=== PATIENT | male | born 1960 ===

== ENCOUNTER → 2017-06-07 | Outpatient (CLI) | payer BC ==
[2017-06-07 12:26] LABS: HEMATOCRIT 46.5 % (42-52); MEAN CELL VOLUME 90.5 fL (80-100); MEAN CORPUSCULAR HEMOGLOBIN 32.1 pg (25-34); MEAN CORPUSCULAR HGB CONC 35.5 g/dl (32-36); MEAN PLATELET VOLUME 11.3 fL (7.4-10.4); PLATELET COUNT 205 K/uL (130-400); RED BLOOD COUNT 5.14 M/uL (4.7-6.1); WHITE BLOOD COUNT 5.43 K/uL (4.8-10.8)
[2017-06-07 12:56] LABS: BLOOD UREA NITROGEN 14 mg/dl (7-18); BUN/CREATININE RATIO 10.6 (10-20); CALCIUM 9.1 mg/dl (8.5-10.1); CARBON DIOXIDE 27 mmol/L (21-32); CHLORIDE 107 mmol/L (98-107); CHOLESTEROL 164 mg/dl (0-200); GLUCOSE 111 mg/dl (70-99); SODIUM 141 mmol/L (136-145); TRIGLYCERIDES 149 mg/dl (0-150); VERY LOW DENSITY LIPOPROT CALC 30 mg/dl
[2017-06-07 13:00] LABS: CHOLESTEROL/HDL RATIO 4.1; FERRITIN 305.5 ng/ml (8.0-388.0); HDL CHOLESTEROL 40 mg/dl; LDL CHOLESTEROL CALCULATED 94 mg/dl
== END | disposition home or self-care (01) ==
LOC: C.LABPBG 07:04
PROVIDERS: ATTEND Family Medicine
DX: I10 Essential (primary) hypertension (principal); G25.81 Restless legs syndrome; Z13.220 Encounter for screening for lipoid disorders

== ENCOUNTER 2023-10-09 19:28 | Observation (INO) ==
--- NOTE | 2023-10-09 19:58 | Emergency Department Note ---
History of Present Illness General Chief complaint: Abdominal Pain Stated complaint: ABD PAIN Time Seen by Provider: 10/09/23 19:39 Source: patient, family ( on the telephone), RN notes reviewed and old records reviewed (08/02/23-primary care office visit for) Mode of arrival: ambulatory Limitations: no limitations History of Present Illness Maximum Pain Intensity: 5 This patient is 63-year-old male who comes in with abdominal pain. It has been going on since said he woke up with a lot of acid reflux and since then he has had abdominal pain diffusely it is mostly in the lower abdomen but does radiate upward he said 1 sides not worse than the other. No trauma or injury he does have some nausea he vomited once today. Has not been eating much because it is worse with eating. No back pain. no trauma or injury. no fever. no dysuria or hematuria. no pain in the legs no numbness or weakness in legs. No chest pain or shortness of breath or cough. He has had no abdominal surgeries .he has a known ventral wall hernia that is unchanged. Home Medications Medication Instructions Recorded Confirmed Type diclofenac sodium 75 mg 75 mg PO BID #180 tabs 08/02/23 10/09/23 Rx tablet,delayed release gabapentin 300 mg capsule 300 mg PO BID #180 caps 08/02/23 10/09/23 Rx losartan 25 mg tablet 25 mg PO BID #180 tabs 08/02/23 10/09/23 Rx trazodone 150 mg tablet 150 mg PO HS #90 tabs 08/02/23 10/09/23 Rx ropinirole 1 mg tablet 1 mg PO QDD 10/09/23 10/09/23 History tamsulosin 0.4 mg capsule 0.4 mg PO QDD 10/09/23 10/09/23 History Allergies Allergy/AdvReac Type Severity Reaction Status Date / Time No Known Allergies Allergy Verified 10/09/23 19:56 Past Med/Surg History Medical History Benign prostatic hyperplasia History of COVID-19 (~08/25/21) @ [facility]--prior to scheduled procedure--no symptoms Lung nodule, multiple Insomnia Restless leg syndrome Hypertension Surgical History History of colonoscopy History of tooth extraction Family History Father , ALS, age 75 ALS (amyotrophic lateral sclerosis) Mother Hypertension Family history of diabetes mellitus Other No family history of adverse response to anesthesia Denies family history of Ovarian cancer Prostate cancer Myocardial infarction Breast cancer Colorectal cancer Social History Smoking Status: Never smoker Tobacco Type: Smokeless Tobacco (Dip or Chew) Second Hand Exposure: No; Do You Dip or Chew Tobacco: Yes; Tobacco Cessation Education Requested by Patient: No Hx Alcohol Use: Yes Alcohol type: beer and hard liquor Alcohol Intake Frequency: Monthly or Less Hx Substance Use: No Preferred Language: Somali Communication Ability: Effective Visual Impairment: No Limitations Hearing Ability: Normal Director Cpg Required: No Beliefs That Will Affect Care: None marital status: Current Living Situation: Spouse Current Living Situation Comment: House current occupational status: employed Other Information That Helps Us Care for You: No Feels Safe at Home: Yes Safety Concerns: Feels Safe At This Time Childhood Exposure to Second-Hand Smoke: Yes Diet: regular Diet Comment: regular caffeine: Yes (coffee) during the past year weight has: decreased > 10 lbs Dental Care, Regularly: Yes Physical Activity Frequency: Daily Physical Activity Frequency Comment: walking Seatbelt Use: always Sunscreen Use: No Assistive Devices: None Review of Systems A total of 10 systems reviewed and were otherwise negative Physical Exam Vital Signs Vital Signs - 24 hr 10/09/23 19:31 10/09/23 20:11 10/09/23 20:14 Temperature 36.5 C Temperature Source Temporal Artery Scan Pulse Rate 95 H 79 Pulse Rate from SpO2 Sensor Respiratory Rate 18 13 Respiratory Effort / Characteristics Non-Labored Spontaneous Respiratory Depth Normal Respiratory Pattern Regular Blood Pressure 138/82 Blood Pressure Mean 100 Blood Pressure Position Sitting Pulse Oximetry 95 98 Oxygen Delivery Method Room Air Room Air Sepsis Recent Fever Within 48 Hours No Sepsis New/Unexplained Change in Mental Status N/A Sepsis Action Taken by Nursing No Action Required 10/09/23 20:20 10/09/23 20:30 10/09/23 20:30 Temperature Temperature Source Pulse Rate 75 75 Pulse Rate from SpO2 Sensor Respiratory Rate 14 17 Respiratory Effort / Characteristics Respiratory Depth Respiratory Pattern Blood Pressure 138/80 Blood Pressure Mean 101 Blood Pressure Position Pulse Oximetry Oxygen Delivery Method Sepsis Recent Fever Within 48 Hours Sepsis New/Unexplained Change in Mental Status Sepsis Action Taken by Nursing 10/09/23 20:40 10/09/23 20:55 10/09/23 21:00 Temperature Temperature Source Pulse Rate 72 76 74 Pulse Rate from SpO2 Sensor 74 73 Respiratory Rate 23 12 20 Respiratory Effort / Characteristics Respiratory Depth Respiratory Pattern Blood Pressure Blood Pressure Mean Blood Pressure Position Pulse Oximetry 94 95 Oxygen Delivery Method Sepsis Recent Fever Within 48 Hours Sepsis New/Unexplained Change in Mental Status Sepsis Action Taken by Nursing 10/09/23 21:10 10/09/23 21:20 10/09/23 21:33 Temperature Temperature Source Pulse Rate 74 71 78 Pulse Rate from SpO2 Sensor 74 71 Respiratory Rate 16 16 Respiratory Effort / Characteristics Respiratory Depth Respiratory Pattern Blood Pressure Blood Pressure Mean Blood Pressure Position Pulse Oximetry 95 94 Oxygen Delivery Method Sepsis Recent Fever Within 48 Hours Sepsis New/Unexplained Change in Mental Status Sepsis Action Taken by Nursing 10/09/23 21:34 10/09/23 21:34 10/09/23 21:40 Temperature Temperature Source Pulse Rate 73 71 Pulse Rate from SpO2 Sensor Respiratory Rate 18 Respiratory Effort / Characteristics Respiratory Depth Respiratory Pattern Blood Pressure 165/80 H Blood Pressure Mean 98 Blood Pressure Position Pulse Oximetry Oxygen Delivery Method Sepsis Recent Fever Within 48 Hours Sepsis New/Unexplained Change in Mental Status Sepsis Action Taken by Nursing 10/09/23 21:50 10/09/23 22:00 10/09/23 22:00 Temperature Temperature Source Pulse Rate 70 71 Pulse Rate from SpO2 Sensor Respiratory Rate 19 Respiratory Effort / Characteristics Respiratory Depth Respiratory Pattern Blood Pressure 146/84 H Blood Pressure Mean 103 Blood Pressure Position Pulse Oximetry Oxygen Delivery Method Sepsis Recent Fever Within 48 Hours Sepsis New/Unexplained Change in Mental Status Sepsis Action Taken by Nursing 10/09/23 22:10 Temperature Temperature Source Pulse Rate 69 Pulse Rate from SpO2 Sensor Respiratory Rate 15 Respiratory Effort / Characteristics Respiratory Depth Respiratory Pattern Blood Pressure Blood Pressure Mean Blood Pressure Position Pulse Oximetry Oxygen Delivery Method Sepsis Recent Fever Within 48 Hours Sepsis New/Unexplained Change in Mental Status Sepsis Action Taken by Nursing General: Well developed well nourished middle-age male who in no acute distress, breathing comfortably on room air. Normal speech HEENT: Normal cephalic atraumatic. Pupils are equal round and reactive to light. Extraocular movements are intact. Oropharynx is pink with moist mucous membranes. No swelling of the mouth lips or tongue. Neck: Supple with a midline trachea. No meningeal signs or stiffness, no JVD or bruits. No Stridor. Chest: Clear to auscultation bilaterally. No wheezes or rhonchi. No increased work of breathing. Heart: Regular rate and rhythm without murmurs or gallops. Abdomen: Soft mildly diffusely tender mostly in the lower to mid abdomen bilaterally. He does have a ventral defect/hernia centrally that is not red or warm is mildly tender but no more so than anywhere else in the abdomen. He may be mildly distended but without rebound guarding or rigidity. : Normal male genitalia no testicular redness warmth or swelling. No masses or hernia seen Extremities: No cyanosis clubbing or edema. No calf tenderness or assymetry Spine/Back. Non tender to palpation. No CVA tenderness Skin: Good turgor without rashes. Neurologic exam: Cranial nerves two through 12 are intact. Motor and sensation are intact and symmetrical throughout. Course Administered Medications Acetaminophen (Ofirmev) 1,000 mg in 100 mls @ 400 mls/hr IV Q8H PRN PRN Reason: Pain or Fever Stop: 10/12/23 22:13 Last Infusion: 10/10/23 00:55 Dose: Infused Documented By: Admin: 10/10/23 00:28 Dose: 400 mls/hr Documented By: ALEXANDER Lactated Ringer's (Lr) 1,000 mls @ 125 mls/hr IV .Q8H GARRISON Stop: 11/08/23 22:29 Last Admin: 10/09/23 23:20 Dose: 125 mls/hr Documented By: ALEXANDER Ketorolac Tromethamine (Ketorolac Tromethamine 15 Mg/Ml Vial) 15 mg IV Q6H PRN PRN Reason: Pain Stop: 10/14/23 22:13 Last Admin: 10/09/23 23:20 Dose: 15 mg Documented By: ALEXANDER Discontinued Medications Sodium Chloride (Nss) 1,000 mls @ 999 mls/hr IV .Q1H1M ONE Stop: 10/09/23 20:52 Last Infusion: 10/09/23 21:20 Dose: Infused Documented By: Admin: 10/09/23 20:02 Dose: 999 mls/hr Documented By: ANNE Pantoprazole Sodium 40 mg/ (Syringe) 10 mls @ 5 mls/min IV NOW STA Stop: 10/09/23 22:26 Last Admin: 10/09/23 22:42 Dose: 5 mls/min Documented By: ANNE Ioversol (Optiray 320 100ml) 93 ml IV ONCE ONE Stop: 10/09/23 20:49 Last Admin: 10/09/23 20:48 Dose: 93 ml Documented By: IRAIDA Ketorolac Tromethamine (Ketorolac Tromethamine 15 Mg/Ml Vial) 10 mg IV NOW ONE Stop: 10/09/23 20:13 Last Admin: 10/09/23 20:18 Dose: 10 mg Documented By: ANNE Ondansetron HCl (Ondansetron Inj 2 Mg/Ml 2 Ml Vial) 4 mg IV NOW STA Stop: 10/09/23 19:53 Last Admin: 10/09/23 20:02 Dose: 4 mg Documented By: ANNE Medical Decision Making Differential Diagnosis Intra-abdominal process, hernia, colitis, pancreatitis, gallbladder disease, diverticulitis, appendicitis, aneurysm, urinary tract process, bowel obstruction Medical Records Attestation: I reviewed the patient's medical records. Home Medications Current Medication List: was personally reviewed by me Laboratory Data Attestation: I reviewed the patient's lab results. 10/09/23 20:03 10/09/23 20:03 Lab Results 10/09/23 10/09/23 10/09/23 Range/Units 20:03 20:09 21:30 WBC 6.77 (4.8-10.8) K/ul RBC 5.41 (4.70-6.10) M/uL Hgb 17.4 (14.0-18.0) g/dl Hct 47.2 (42.0-52.0) % MCV 87.2 (80.0-100.0) fL MCH 32.2 (25.0-34.0) pg MCHC 36.9 H (32.0-36.0) g/dL RDW Std Deviation 41.0 (36.4-46.3) fL RDW Coeff of Zuhair 12.9 (11.5-14.5) % Plt Count 250 (130-400) K/uL MPV 10.4 (9.4-12.4) fL Immature Gran % (Auto) 0.1 % Neut % (Auto) 70.2 % Lymph % (Auto) 17.3 % Coffee % (Auto) 11.4 % Eos % (Auto) 0.9 % Baso % (Auto) 0.1 % Neut # (Auto) 4.75 (1.40-6.50) K/uL Lymph # (Auto) 1.17 L (1.20-3.40) K/uL Coffee # (Auto) 0.77 H (0.11-0.59) K/uL Eos # (Auto) 0.06 (0.00-0.50) K/uL Baso # (Auto) 0.01 (0.00-0.20) K/uL Immature Gran # (Auto) 0.01 (0.01-0.20) K/uL Sodium 138 (136-145) mmol/L Potassium 3.8 (3.5-5.1) mmol/L Chloride 105 (98-107) mmol/L Carbon Dioxide 25 (21-32) mmol/L Anion Gap 8 (3-11) BUN 15 (6-23) mg/dl Creatinine 1.15 (0.6-1.4) mg/dl Est Cr Clr Drug Dosing 75.9 ml/min Est GFR ( Amer) 77.0 ml/min Est GFR (Non-Af Amer) 66.4 ml/min BUN/Creatinine Ratio 13.0 (10-20) Glucose 121 H (70-99(Fasting)) mg/dl Lactate 1.0 (0.4-2.0) mmol/L Calcium 9.1 (8.6-10.3) mg/dl Total Bilirubin 0.7 (0.2-1.0) mg/dl AST 15 (13-39) U/L ALT 20 (7-52) U/L Alkaline Phosphatase 51 (34-104) U/L Troponin I High Sens 2.7 (0-20) pg/ml Total Protein 7.1 (6.0-8.3) gm/dl Albumin 4.4 (3.4-5.0) gm/dl Globulin 2.7 (2.5-4.0) gm/dl Albumin/Globulin Ratio 1.6 (0.9-2) Lipase 8 L (11-82) U/L Urine Color Yellow Urine Appearance Clear (Clear) Urine pH 5.5 (4.5-7.5) Ur Specific [place] > 1.045 H (1.000-1.030) Urine Protein Negative (Negative) Urine Glucose (UA) Negative (Negative) Urine Ketones Negative (Negative) Urine Blood Negative (Negative) Urine Nitrite Negative (Negative) Urine Bilirubin Negative (Negative) Urine Urobilinogen Negative (Negative) Ur Leukocyte Esterase Negative (Negative) Ur Culture Indicated? Cancelled Imaging Data Attestation: I personally reviewed and interpreted this imaging study as follows: My Impression: CAT scan of the abdomen and pelvis-there are multiple dilated loops of small bowel concerning for small bowel obstruction Radiologist's Impression: Abdomen/Pelvis CT 10/09/23 19:53 Exam(s): CT ABDOMEN + PELVIS With Contrast IV Amt: 93ml EXAM: CT Abdomen and Pelvis With Intravenous Contrast CLINICAL HISTORY: Reason for exam: abd pain. TECHNIQUE: Axial computed tomography images of the abdomen and pelvis with intravenous contrast. CTDI is 56.2 mGy and DLP is 2468.57 mGy-cm. Automated exposure control was utilized for the study. A dose lowering technique was utilized adhering to the principles of ALARA. CONTRAST: Patient received 93ml of IV contrast COMPARISON: CT abdomen/pelvis on 07/02/2018 FINDINGS: Lung bases: Stable probably benign nodules in the right lower lobe, measuring up to 1.3 mm. No consolidation. ABDOMEN: Liver: Hepatic steatosis. Hepatomegaly. Gallbladder and bile ducts: Unremarkable. No calcified stones. No ductal dilation. Pancreas: Unremarkable. No mass. No ductal dilation. Spleen: Unremarkable. No splenomegaly. Adrenals: Unremarkable. No mass. Kidneys and ureters: Unremarkable. No hydronephrosis or obstructing stone. Stomach and bowel: Dilated fluid and gas-filled small bowel loops with gradual transition to smaller caliber ileal small bowel, concerning for enteritis or ileus. Partial small bowel obstruction is not excluded. PELVIS: Appendix: Normal appendix. Bladder: Unremarkable. No mass. Reproductive: Mild prostatomegaly. ABDOMEN and PELVIS: Intraperitoneal space: Unremarkable. No free air. No significant fluid collection. Bones/joints: Degenerative changes of the spine. No acute fracture. No dislocation. Soft tissues: Small fat-containing inguinal hernias. Vasculature: Unremarkable. No abdominal aortic aneurysm. Lymph nodes: Unremarkable. No enlarged lymph nodes. IMPRESSION: 1. Dilated fluid and gas-filled small bowel loops with gradual transition to smaller caliber ileal small bowel, concerning for enteritis or ileus. Partial small bowel obstruction is not excluded. 2. Hepatic steatosis. Hepatomegaly. Electronically signed by: Padmini Andres M.D. 10/09/23 21:20 PM ECG Data Attestation: I personally reviewed and interpreted this ECG as follows: Indication: + abdominal pain Rate (beats per minute): 76 Rhythm: + normal sinus ECG Intervals/blocks: + Normal QRS, + Normal QT and + Normal IN ECG Bath: + Normal ECG ST segments: + Normal ST segments ECG Findings: no PACs or no PVCs Comparison ECG Date: from (07/02/18) Change: no significant change MDM Narrative This patient comes in as described above. He has been having abdominal pain for the last several days. He is very healthy otherwise and he has never any abdominal surgery. On exam, he is diffusely tender but has no peritonitis. IV access established she was kept n.p.o. he was hydrated with a 1 L IV normal saline bolus was given Zofran 4 mg IV for nausea multiple blood testing was obtained as well as urinalysis and CAT scan. I also ordered an EKG which shows no ischemic change or ectopy. His labs are reassuring he has no white count or fever to suggest infection is no acute electrolyte or metabolic abnormalities. CAT scan shows what appears to be either an ileus or small bowel obstruction. Given his lack of abdominal surgical history I did consult and discussed case with Dr. Bill who does recommend admission to medicine I consulted the medical team the patient was hydrated. He had no vomiting here and thus did not require NG tube he will be kept n.p.o. I discussed the case with his as well who is on the phone and is a nurse. Continuous cardiac monitoring: Upon my evaluation he was noted to be in normal sinus rhythm with a rate of 70 Impression & Plan SBO (small bowel obstruction), Abdominal pain, Nausea Discharge Plan Visit Data Chief Complaint: Abdominal Pain Stated Complaint: ABD PAIN ED Provider: Eddie Leiva Discharge Problem: SBO (small bowel obstruction), Abdominal pain, Nausea Patient Disposition: Admitted As Inpatient Discharge Instructions Interventions: ED Discharge Assessment Last Done: 10/09/23 22:39 Discharge Problem: Abdominal pain Qualifiers: Abdominal location: generalized Qualified Code(s): R10.84 - Generalized abdominal pain
[2023-10-09] MEDS: ONDANSETRON INJ 2 MG/ML 2 ML VIAL IV STA (20:02)
[2023-10-09] MEDS: SODIUM CHLORIDE 0.9% 1,000 ML IV ONE (20:02)
[2023-10-09] MEDS: KETOROLAC TROMETHAMINE 15 MG/ML VIAL IV ONE (20:18)
[2023-10-09 20:19] LABS: Basophils # (auto) 0.01 K/uL (0.00-0.20); Basophils % (auto) 0.1 %; Eosinophils # (auto) 0.06 K/uL (0.00-0.50); Eosinophils % (auto) 0.9 %; Hematocrit (blood only) 47.2 % (42.0-52.0); Hemoglobin 17.4 g/dl (14.0-18.0); Immature Granulocytes # (auto) 0.01 K/uL (0.01-0.20); Immature Granulocytes % (auto) 0.1 %; Lymphocytes # (auto) 1.17 K/uL (1.20-3.40); Lymphocytes % (auto) 17.3 %; Mean Corpuscular Hemoglobin 32.2 pg (25.0-34.0); Mean Corpuscular Hgb Conc 36.9 g/dL (32.0-36.0); Mean Corpuscular Volume 87.2 fL (80.0-100.0); Mean Platelet Volume 10.4 fL (9.4-12.4); Monocytes # (auto) 0.77 K/uL (0.11-0.59); Monocytes % (auto) 11.4 %; Neutrophils # (auto) 4.75 K/uL (1.40-6.50); Neutrophils % (auto) 70.2 %; Platelet Count 250 K/uL (130-400); RDW Coefficient of Variation 12.9 % (11.5-14.5); Red Blood Count 5.41 M/uL (4.70-6.10); White Blood Count 6.77 K/ul (4.8-10.8)
[2023-10-09 20:32] LABS: Albumin Globulin Ratio 1.6 (0.9-2); Albumin Level 4.4 gm/dl (3.4-5.0); Bilirubin,Total 0.7 mg/dl (0.2-1.0); Calcium 9.1 mg/dl (8.6-10.3); Creatinine Clr Calc Pharmacy 75.9 ml/min; Est GFR (Non-African American) 66.4 ml/min; Globulin 2.7 gm/dl (2.5-4.0); Potassium 3.8 mmol/L (3.5-5.1); Total Protein 7.1 gm/dl (6.0-8.3)
[2023-10-09 20:40] LABS: Troponin I High Sensitivity 2.7 pg/ml (0-20)
[2023-10-09] MEDS: OPTIRAY 320 100ml IV ONE (20:48)
--- NOTE | 2023-10-09 21:20 | CT Scan Report ---
Exam(s): CT ABDOMEN + PELVIS With Contrast IV Amt: 93ml EXAM: CT Abdomen and Pelvis With Intravenous Contrast CLINICAL HISTORY: Reason for exam: abd pain. TECHNIQUE: Axial computed tomography images of the abdomen and pelvis with intravenous contrast. CTDI is 56.2 mGy and DLP is 2468.57 mGy-cm. Automated exposure control was utilized for the study. A dose lowering technique was utilized adhering to the principles of ALARA. CONTRAST: Patient received 93ml of IV contrast COMPARISON: CT abdomen/pelvis on 07/02/2018 FINDINGS: Lung bases: Stable probably benign nodules in the right lower lobe, measuring up to 1.3 mm. No consolidation. ABDOMEN: Liver: Hepatic steatosis. Hepatomegaly. Gallbladder and bile ducts: Unremarkable. No calcified stones. No ductal dilation. Pancreas: Unremarkable. No mass. No ductal dilation. Spleen: Unremarkable. No splenomegaly. Adrenals: Unremarkable. No mass. Kidneys and ureters: Unremarkable. No hydronephrosis or obstructing stone. Stomach and bowel: Dilated fluid and gas-filled small bowel loops with gradual transition to smaller caliber ileal small bowel, concerning for enteritis or ileus. Partial small bowel obstruction is not excluded. PELVIS: Appendix: Normal appendix. Bladder: Unremarkable. No mass. Reproductive: Mild prostatomegaly. ABDOMEN and PELVIS: Intraperitoneal space: Unremarkable. No free air. No significant fluid collection. Bones/joints: Degenerative changes of the spine. No acute fracture. No dislocation. Soft tissues: Small fat-containing inguinal hernias. Vasculature: Unremarkable. No abdominal aortic aneurysm. Lymph nodes: Unremarkable. No enlarged lymph nodes. IMPRESSION: 1. Dilated fluid and gas-filled small bowel loops with gradual transition to smaller caliber ileal small bowel, concerning for enteritis or ileus. Partial small bowel obstruction is not excluded. 2. Hepatic steatosis. Hepatomegaly. Electronically signed by: Padmini Andres M.D. 10/09/23 21:20 PM
--- NOTE | 2023-10-09 21:47 | History & Physical Report ---
Date of Service October 09, 2023 Assessment & Plan (1) Abdominal pain: Plan: Pt is a 63 yo male with PMH of BPH, HTN, lung nodule, RLS, and insomnia presenting due to increasing abdominal pain and nausea. Abdominal pain - lab work significant for no leukocytosis, Hgb 17.4, CMP WNL, lipase negative - CTAP showed dilated fluid/gas filled small bowel concerning for enteritis vs. ileus vs. SBO - will keep pt NPO, continue fluids with LR at 125 mL/hr, pain control with IV tylenol and ketorolac PRN - will give protonix 40 mg IV daily to help with increased acid over the last few days (suspect related to pt's lack of PO intake) - pt already passing gas and with small BM this AM; continue to monitor - suspect pt may trial clear liquid diet as early as tomorrow AM if pain/BM/flatulence continues to improve HTN - will hold home losartan 25 mg daily until pt able to take PO - may consider IV labetalol if BP sustained >180/100; will not add at this time as BP have been well controlled BPH - will hold home tamsulosin 0.4mg daily until pt able to take PO Insomnia - will hold home trazodone 150 mg nightly until pt able to take PO RLS - will hold home ropinirole 1 mg until pt able to take PO Diet: strict NPO Code: DNR/DNI VTE ppx: lovenox Dispo: admit to med/surg (2) Benign prostatic hyperplasia: (3) Restless leg syndrome: (4) Hypertension: (5) Insomnia: History of Present Illness Chief Complaint: abdominal pain Primary Care Provider: Annita Zurita DO Pt is a 63 yo male with PMH of BPH, HTN, lung nodule, RLS, and insomnia presenting due to increasing abdominal pain and nausea. Pt explains that his abdominal pain began Wed 10/05 and has gotten progressively worse since then. He has never had pain like this before. He notes it is mostly in his lower abdomen. He did vomit once this morning after trying to drink some Gatorade. He has not been eating normally/if at all the last few days d/t his abdominal pain. He has been passing gas and had a small bowel movement this AM. He denies any prior abdominal surgeries. He denies any past hx of SBO. Pt had a colonoscopy 10/2021 where a 4 mm hyperplastic polyp was removed from the sigmoid colon. In the ER, pt was given zofran 4 mg x1, ketorolac 10 mg x1, and 1L NS. His pain was improved after this. Allergies Allergy/AdvReac Type Severity Reaction Status Date / Time No Known Allergies Allergy Verified 10/09/23 19:56 Home Medications Medication Instructions Recorded Confirmed Type diclofenac sodium 75 mg 75 mg PO BID #180 tabs 08/02/23 10/09/23 Rx tablet,delayed release gabapentin 300 mg capsule 300 mg PO BID #180 caps 08/02/23 10/09/23 Rx losartan 25 mg tablet 25 mg PO BID #180 tabs 08/02/23 10/09/23 Rx trazodone 150 mg tablet 150 mg PO HS #90 tabs 08/02/23 10/09/23 Rx ropinirole 1 mg tablet 1 mg PO QDD 10/09/23 10/09/23 History tamsulosin 0.4 mg capsule 0.4 mg PO QDD 10/09/23 10/09/23 History Past Med/Surg History Medical History Benign prostatic hyperplasia History of COVID-19 (~08/25/21) @ [facility]--prior to scheduled procedure--no symptoms Lung nodule, multiple Insomnia Restless leg syndrome Hypertension Surgical History History of colonoscopy History of tooth extraction Family History Father , ALS, age 75 ALS (amyotrophic lateral sclerosis) Mother Hypertension Family history of diabetes mellitus Other No family history of adverse response to anesthesia Denies family history of Ovarian cancer Prostate cancer Myocardial infarction Breast cancer Colorectal cancer Social History Smoking Status: Never smoker Tobacco Type: Smokeless Tobacco (Dip or Chew) Second Hand Exposure: No; Do You Dip or Chew Tobacco: Yes; Tobacco Cessation Education Requested by Patient: No Hx Alcohol Use: Yes Alcohol type: beer and hard liquor Alcohol Intake Frequency: Monthly or Less Hx Substance Use: No Preferred Language: Honduran Communication Ability: Effective Visual Impairment: No Limitations Hearing Ability: Normal 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 Beliefs That Will Affect Care: None marital status: Current Living Situation: Spouse Current Living Situation Comment: House current occupational status: employed Other Information That Helps Us Care for You: No Feels Safe at Home: Yes Safety Concerns: Feels Safe At This Time Childhood Exposure to Second-Hand Smoke: Yes Diet: regular Diet Comment: regular caffeine: Yes (coffee) during the past year weight has: decreased > 10 lbs Dental Care, Regularly: Yes Physical Activity Frequency: Daily Physical Activity Frequency Comment: walking Seatbelt Use: always Sunscreen Use: No Assistive Devices: None Review of Systems Review of Systems: As per HPI Physical Exam Constitutional: NAD, vitals WNL. Eyes: Conjunctivae normal. Respiratory: CTA bilaterally. Non labored breathing. No rhonchi, wheezing, or crackles. Cardiovascular: RRR. No murmurs noted. No LE edema. Gastrointestinal (Abdomen): Minimally tender diffusely, distended, hypoactive BS. No masses noted. Skin: [place], dry. No rashes noted. Neurologic: Sensation grossly intact. No FND appreciated. Psychiatric: Speech of normal pace and content. Mood and affect congruent. Results & Data Results & Data Vital Signs (Past 12 Hours) Vital Signs Temp Pulse Resp BP Pulse Ox O2 Del Method 10/09/23 21:34 165/80 H 10/09/23 21:34 73 18 10/09/23 21:33 78 10/09/23 21:20 71 16 94 10/09/23 21:10 74 16 95 10/09/23 21:00 74 20 95 10/09/23 20:55 76 12 94 10/09/23 20:40 72 23 10/09/23 20:30 138/80 10/09/23 20:30 75 17 10/09/23 20:20 75 14 10/09/23 20:14 79 13 10/09/23 20:11 98 Room Air 10/09/23 19:31 36.5 C 95 H 18 138/82 95 Room Air Supervising Physician Co-Signing Physician Notes Attending addendum: I have physically seen this patient, have supervised the medical residents activities, and agree with the H&P unless as otherwise noted. Assessment and Plan: Enteritis/ileus/possible partial small bowel obstruction- N.p.o. LR at 125 MLS per hour Protonix 40 mg IV daily Zofran 4 mg IV every 6 hours as needed Hypertension- hold home losartan BPH- Hold tamsulosin until taking p.o. Insomnia- Hold trazodone until taking p.o. RLS hold ropinirole until taking p.o. Resident Activity Tracking Resident Involvement: Resident Care Provided Care Provided: Adult [facility]
[2023-10-09 22:11] LABS: Appearance Urine Clear (Clear); Bilirubin Urine Negative (Negative); Blood Urine Negative (Negative); Color Urine Yellow; Glucose Urine UA Negative (Negative); Ketones Urine Negative (Negative); Leukocyte Esterase Urine Negative (Negative); Nitrite Urine Negative (Negative); Protein Urine Negative (Negative); Specific Gravity Urine > 1.045 (1.000-1.030); Urobilinogen Urine Negative (Negative); pH Urine 5.5 (4.5-7.5)
[2023-10-09] MEDS ORDERED: ONDANSETRON INJ 2 MG/ML 2 ML VIAL IV PRN (22:14)
[2023-10-09] MEDS: PANTOprazole 40 MG in SYRINGE 0 ML IV STA (22:42)
[2023-10-09] MEDS: LACTATED RINGER'S 1,000 ML IV SCH (23:20)
[2023-10-09] MEDS: KETOROLAC TROMETHAMINE 15 MG/ML VIAL IV PRN (23:20)
[2023-10-10] MEDS: ACETAMINOPHEN 1,000 MG/100 ML VIAL IV PRN (00:28)
[2023-10-10 06:02] LABS: Hematocrit (blood only) 43.3 % (42.0-52.0); Hemoglobin 15.6 g/dl (14.0-18.0); Mean Corpuscular Hemoglobin 31.8 pg (25.0-34.0); Mean Corpuscular Volume 88.4 fL (80.0-100.0); Mean Platelet Volume 10.3 fL (9.4-12.4); Platelet Count 202 K/uL (130-400); RDW Coefficient of Variation 12.8 % (11.5-14.5); RDW Standard Deviation 41.7 fL (36.4-46.3); White Blood Count 5.68 K/ul (4.8-10.8)
[2023-10-10 06:08] LABS: BUN Creatinine Ratio 13.1 (10-20); Calcium 8.4 mg/dl (8.6-10.3); Creatinine Clr Calc Pharmacy 71.2 ml/min; Est GFR (African American) 71.7 ml/min; Est GFR (Non-African American) 61.8 ml/min
--- NOTE | 2023-10-10 10:07 | XRay Report ---
XR KUB/Abdomen 1 view CLINICAL HISTORY: nausea, dilated SB loops TECHNIQUE: 1 view of the abdomen was obtained. Comparison: Comparison is made to CT abdomen pelvis 10/09/2023 FINDINGS: Lung bases are unremarkable. The osseous structures are grossly unremarkable. Multiple dilated loops of small bowel measure up to 61 mm. A moderate amount of stool is noted within the large bowel. IMPRESSION: Findings compatible with ongoing small bowel obstruction, stable to minimally increased. ACT 112: Negative or not required by law. Electronically signed by: Brandon Valle M.D. 10/10/2023 10:06 AM
--- NOTE | 2023-10-10 11:58 | Hospitalist Progress Note ---
Date of Service October 10, 2023 Assessment & Plan (1) SBO (small bowel obstruction): Plan: Uncertain he if he indeed has a small bowel obstruction. Small bowel loops are dilated on x-ray and he has intermittent nausea but denies vomiting. He states he had a bowel movement yesterday. The entire family is recovering from a recent viral illness. Will ask general surgery to see. He is currently n.p.o. on IV fluids (2) Hypertension: Plan: Stable. Continue current medical management (3) Benign prostatic hyperplasia: Plan: Stable. Continue current medical management Plan Eventual discharge to home this week Admission and Anticipated Discharge Date Admission Date: October 09, 2023 Subjective Alert and oriented. No distress. KUB today reveals multiple dilated loops of small bowel. He has active bowel sounds and states he had a bowel movement yesterday. Multiple family members with recent viral illness. Will ask general surgery to see the patient. He denies vomiting Review of Systems 2 Review of Systems: Constitutional-no fever or chills. Recent viral illness ENT-no blurred vision, no double vision, no epistaxis, no sore throat Respiratory-no cough, no wheezing, no shortness of breath Cardiac-no palpitations, no chest pain, no syncope GI-no current vomiting, diarrhea, melena, hematochezia -no urinary retention, no urinary incontinence, no dysuria, no hematuria Musculoskeletal-no joint pain, no muscle tenderness Skin-no bruising, no rashes, no pruritus Neuro-no isolated weakness, no paresthesia, no weakness Psych-no depression, no anxiety Physical Exam 2 Physical Exam: General-alert and oriented x3, no fevers, no chills HEENT-head atraumatic and normocephalic, pupils equal and reactive to light, extraocular muscles intact Neck-no lymphadenopathy or thyromegaly, trachea midline Chest-clear to auscultation. No rales, wheezing or rhonchi Cardiac-regular rate and rhythm, normal S1 and S2 Abdomen-normal bowel sounds, distended, nontender Extremities-no cyanosis, clubbing, or edema Neuro-cranial nerves II through XII intact, motor and sensory function within normal limits, strength symmetrical, no focal deficits Psych-normal affect, normal mood Results & Data Results & Data Vital Signs (Past 12 Hours) Vital Signs Temp Pulse Resp BP Pulse Ox O2 Del Method 10/10/23 07:21 36.9 C 57 L 18 155/82 H 96 Room Air Laboratory Results 10/10/23 05:28 10/10/23 05:28 PG Care Time/CCT Total # of Minutes Spent Total Time Spent with Patient: Total time spent is greater than 50% in coordination of care (as documented) at patient's floor/unit and/or counseling patient: Coding Level of Care Code 82068 SUB INP/OBS CARE 3/50MIN Diagnoses SBO (small bowel obstruction) K56.609 Hypertension I10 Benign prostatic hyperplasia N40.0
[2023-10-10] MEDS: PANTOprazole 40 MG in SYRINGE 0 ML IV SCH (12:16)
[2023-10-10] MEDS: ENOXAPARIN INJ 40 MG/0.4 ML SYR SQ SCH (12:16)
--- NOTE | 2023-10-10 12:44 | Surgery Consultation ---
Date of Consultation October 10, 2023 Assessment & Plan (1) Abdominal pain: 63-year-old man with abdominal pain nausea and vomiting in the setting of a and stepdaughter with viral gastroenteritis. CT scan shows dilated small bowel but no transition point. This could be early or partial small bowel obstruction versus enteritis. In either case, his symptoms have completely resolved and he is hungry. He is passing flatus. It is reasonable to try advancement of the diet to liquids. There is no urgent need for surgical intervention as his abdominal exam is benign, he has no evidence of a leukocytosis, and no concerning findings on imaging. Agree with advancement of diet to liquids. Will follow. History of Present Illness Reason for Consultation: abdominal pain Requesting Physician: Mina Lazaro MD Attending Physician: Mina Lazaro MD History of Present Illness 63-year-old man who presents to the emergency room complaining of lower abdominal pain which began on Wednesday. His and stepdaughter also had a viral gastroenteritis around that time. Their symptoms lasted about 24 hours and then resolved. His symptoms persisted with a dull constant pain in his lower abdomen, no radiation, no worsening or relieving factors. This would come in waves which reached up to 9 out of 10 in intensity. He did have some nausea and vomiting intermittently. His last bowel movement was yesterday morning and was solid. He is still passing gas. As his pain persisted, he came to the emergency room for further evaluation. Since admission, his pain has now completely resolved. He is hungry. He denies any similar symptoms in the past. He has not had any prior abdominal surgery. Allergies Allergy/AdvReac Type Severity Reaction Status Date / Time No Known Allergies Allergy Verified 10/09/23 19:56 Home Medications Medication Instructions Recorded Confirmed Type diclofenac sodium 75 mg 75 mg PO BID #180 tabs 08/02/23 10/09/23 Rx tablet,delayed release gabapentin 300 mg capsule 300 mg PO BID #180 caps 08/02/23 10/09/23 Rx losartan 25 mg tablet 25 mg PO BID #180 tabs 08/02/23 10/09/23 Rx trazodone 150 mg tablet 150 mg PO HS #90 tabs 08/02/23 10/09/23 Rx ropinirole 1 mg tablet 1 mg PO QDD 10/09/23 10/09/23 History tamsulosin 0.4 mg capsule 0.4 mg PO QDD 10/09/23 10/09/23 History Patient History Medical History Benign prostatic hyperplasia History of COVID-19 (~08/25/21) @ [facility]--prior to scheduled procedure--no symptoms Lung nodule, multiple Insomnia Restless leg syndrome Hypertension Surgical History History of colonoscopy History of tooth extraction Family History Father , ALS, age 75 ALS (amyotrophic lateral sclerosis) Mother Hypertension Family history of diabetes mellitus Other No family history of adverse response to anesthesia Denies family history of Ovarian cancer Prostate cancer Myocardial infarction Breast cancer Colorectal cancer Social History Smoking Status: Never smoker Tobacco Type: Smokeless Tobacco (Dip or Chew) Second Hand Exposure: No; Do You Dip or Chew Tobacco: Yes; Tobacco Cessation Education Requested by Patient: No Hx Alcohol Use: Yes Alcohol type: beer and hard liquor Alcohol Intake Frequency: Monthly or Less Hx Substance Use: No Preferred Language: Ethiopian Communication Ability: Effective Visual Impairment: No Limitations Hearing Ability: Normal 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 Beliefs That Will Affect Care: None marital status: Current Living Situation: Spouse Current Living Situation Comment: House current occupational status: employed Other Information That Helps Us Care for You: No Feels Safe at Home: Yes Safety Concerns: Feels Safe At This Time Childhood Exposure to Second-Hand Smoke: Yes Diet: regular Diet Comment: regular caffeine: Yes (coffee) during the past year weight has: decreased > 10 lbs Dental Care, Regularly: Yes Physical Activity Frequency: Daily Physical Activity Frequency Comment: walking Seatbelt Use: always Sunscreen Use: No Assistive Devices: None Review of Systems Review of Systems: All systems reviewed & are unremarkable except as noted in HPI & below Physical Exam Constitutional: WD/WN, vitals as above Eyes: PERRL, conjunctivae normal, anicteric sclerae Neck: normal visual inspection Respiratory: normal respiratory effort, lungs clear to auscultation Cardiovascular: RRR, no murmur, no edema Gastrointestinal (Abdomen): normal bowel sounds, soft, nontender, no hepatosplenomegaly Musculoskeletal: Extremities: extremities normal to inspection Neurologic: awake; no focal motor deficits Psychiatric: A+Ox3, euthymic affect Results & Data Vital Signs (Past 12 Hours) Vital Signs Temp Pulse Resp BP Pulse Ox O2 Del Method 10/10/23 07:21 36.9 C 57 L 18 155/82 H 96 Room Air Laboratory Results Abnormal lab results 10/09/23 10/09/23 10/10/23 Range/Units 20:03 21:30 05:28 MCHC 36.9 H (32.0-36.0) g/dL Lymph # (Auto) 1.17 L (1.20-3.40) K/uL [place] # (Auto) 0.77 H (0.11-0.59) K/uL Chloride 108 H (98-107) mmol/L Glucose 121 H 110 H (70-99(Fasting)) mg/dl Calcium 8.4 L (8.6-10.3) mg/dl Lipase 8 L (11-82) U/L Ur Specific [place] > 1.045 H (1.000-1.030) Diagnostic Findings Exam(s): CT ABDOMEN + PELVIS With Contrast IV Amt: 93ml EXAM: CT Abdomen and Pelvis With Intravenous Contrast CLINICAL HISTORY: Reason for exam: abd pain. TECHNIQUE: Axial computed tomography images of the abdomen and pelvis with intravenous contrast. CTDI is 56.2 mGy and DLP is 2468.57 mGy-cm. Automated exposure control was utilized for the study. A dose lowering technique was utilized adhering to the principles of ALARA. CONTRAST: Patient received 93ml of IV contrast COMPARISON: CT abdomen/pelvis on 07/02/2018 FINDINGS: Lung bases: Stable probably benign nodules in the right lower lobe, measuring up to 1.3 mm. No consolidation. ABDOMEN: Liver: Hepatic steatosis. Hepatomegaly. Gallbladder and bile ducts: Unremarkable. No calcified stones. No ductal dilation. Pancreas: Unremarkable. No mass. No ductal dilation. Spleen: Unremarkable. No splenomegaly. Adrenals: Unremarkable. No mass. Kidneys and ureters: Unremarkable. No hydronephrosis or obstructing stone. Stomach and bowel: Dilated fluid and gas-filled small bowel loops with gradual transition to smaller caliber ileal small bowel, concerning for enteritis or ileus. Partial small bowel obstruction is not excluded. PELVIS: Appendix: Normal appendix. Bladder: Unremarkable. No mass. Reproductive: Mild prostatomegaly. ABDOMEN and PELVIS: Intraperitoneal space: Unremarkable. No free air. No significant fluid collection. Bones/joints: Degenerative changes of the spine. No acute fracture. No dislocation. Soft tissues: Small fat-containing inguinal hernias. Vasculature: Unremarkable. No abdominal aortic aneurysm. Lymph nodes: Unremarkable. No enlarged lymph nodes. IMPRESSION: 1. Dilated fluid and gas-filled small bowel loops with gradual transition to smaller caliber ileal small bowel, concerning for enteritis or ileus. Partial small bowel obstruction is not excluded. 2. Hepatic steatosis. Hepatomegaly. (1) Abdominal pain Abdominal location: generalized Qualified Code(s): R10.84 - Generalized abdominal pain
[2023-10-10] MEDS: rOPINIRole HCL 1 MG TABLET PO SCH ×2 (17:28→17:35)
[2023-10-10] MEDS: TAMSULOSIN HCL 0.4 MG CAP PO SCH (17:28)
[2023-10-10] MEDS: traZODone HCL 50 MG TAB PO SCH (21:07)
[2023-10-10] MEDS: LOSARTAN POTASSIUM 25 MG TAB PO SCH (21:08)
[2023-10-10] MEDS: GABAPENTIN 300 MG CAP PO SCH (21:09)
--- NOTE | 2023-10-10 22:49 | Electrocardiogram Report ---
Test Reason : Blood Pressure : / mmHG Vent. Rate : 076 BPM Atrial Rate : 076 BPM P-R Int : 180 ms QRS Dur : 074 ms QT Int : 354 ms P-R-T Axes : 036 040 019 degrees QTc Int : 398 ms Normal sinus rhythm Normal ECG When compared with ECG of 02-JUL-2018 13:31, No significant change was found Confirmed by hPani Skelton ([id number]) on 10/10/2023 10:49:35 PM Referred By: REFERRED SELF Confirmed By:Phani Skelton
--- NOTE | 2023-10-11 03:42 | Billing Data ---
Date of Service October 11, 2023 Coding Level of Care Code 64045 INT INP/OBS CARE
[2023-10-11 07:22] LABS: Hematocrit (blood only) 43.3 % (42.0-52.0); Hemoglobin 15.8 g/dl (14.0-18.0); Mean Corpuscular Hgb Conc 36.5 g/dL (32.0-36.0); Mean Corpuscular Volume 87.7 fL (80.0-100.0); Mean Platelet Volume 10.6 fL (9.4-12.4); Platelet Count 189 K/uL (130-400); RDW Coefficient of Variation 12.5 % (11.5-14.5); RDW Standard Deviation 39.9 fL (36.4-46.3); Red Blood Count 4.94 M/uL (4.70-6.10); White Blood Count 4.26 K/ul (4.8-10.8)
[2023-10-11 07:44] LABS: BUN Creatinine Ratio 10.4 (10-20); Calcium 8.8 mg/dl (8.6-10.3); Creatinine Clr Calc Pharmacy 75.6 ml/min; Est GFR (Non-African American) 66.4 ml/min; Potassium 4.1 mmol/L (3.5-5.1)
--- NOTE | 2023-10-11 11:23 | Surgery Progress Note ---
Date of Service October 11, 2023 Assessment & Plan (1) Abdominal pain: Plan: 63-year-old man with abdominal pain nausea and vomiting in the setting of a and stepdaughter with viral gastroenteritis. CT scan shows dilated small bowel but no transition point. This could be early or partial small bowel obstruction versus enteritis. In either case, his symptoms have completely resolved. advance diet as tolerated. will sign off for now, please call with questions of concerns. Admission and Anticipated Discharge Date Admission Date: October 09, 2023 Subjective doing well; feeling much better; no nausea/vomiting; passing flatus; tolerating full liquids Physical Exam Physical Exam: NAD A&Ox3 AFVSS Abd soft, NTND Results & Data Vital Signs (Past 12 Hours) Vital Signs Temp Pulse Resp BP Pulse Ox O2 Del Method 10/11/23 07:49 36.7 C 61 20 158/87 H 96 Room Air (1) Abdominal pain Abdominal location: generalized Qualified Code(s): R10.84 - Generalized abdominal pain
--- NOTE | 2023-10-11 14:41 | Discharge Summary ---
Discharge Summary Date of Service October 11, 2023 Notes For Next Care Provider Medication Changes From Visit None Admission HPI Per Admitting Provider Pt is a 63 yo male with PMH of BPH, HTN, lung nodule, RLS, and insomnia presenting due to increasing abdominal pain and nausea. Pt explains that his abdominal pain began Wed 10/05 and has gotten progressively worse since then. He has never had pain like this before. He notes it is mostly in his lower abdomen. He did vomit once this morning after trying to drink some Gatorade. He has not been eating normally/if at all the last few days d/t his abdominal pain. He has been passing gas and had a small bowel movement this AM. He denies any prior abdominal surgeries. He denies any past hx of SBO. Pt had a colonoscopy 10/2021 where a 4 mm hyperplastic polyp was removed from the sigmoid colon. In the ER, pt was given zofran 4 mg x1, ketorolac 10 mg x1, and 1L NS. His pain was improved after this. Principal Dx & Hospital Course #1 = Principal Diagnosis (1) Ileus due to infection: Pt is a 63 yo male with PMH of BPH, HTN, lung nodule, RLS, and insomnia presenting due to increasing abdominal pain and nausea, found ot have partial SBO vs ileus from likely viral GE. Multiple family members with VGE prior to admission Improved with conservative measures-made NPO, given IVFs. Now moving bowels, tolerating low fiber diet, no further abdominal pain or nausea, feeling very well dc to home on low fiber diet x 1 week then advance to regular Appreciate Surgery consult (2) Abdominal pain: as above, from ileus, VGE lab work significant for no leukocytosis, Hgb 17.4, CMP WNL, lipase negative CTAP showed dilated fluid/gas filled small bowel concerning for enteritis vs. ileus vs. SBO (3) Benign prostatic hyperplasia: continue flomax, no acute issues (4) Restless leg syndrome: continue home meds (5) Hypertension: continue home losartan BPs controlled (6) Insomnia: continue home trazodone Plan Dispo-dc to home DVT proph-Lovenox SQ Discharge Exam Constitutional WD/WN, vitals as above Neck trachea midline, no thyromegaly Respiratory normal respiratory effort, lungs clear to auscultation Cardiovascular RRR, no murmur, no edema Chest (Breasts) Chest: normal inspection of chest Gastrointestinal (Abdomen) normal bowel sounds, soft, nontender, no hepatosplenomegaly Musculoskeletal Extremities: extremities normal to inspection; no cyanosis and no clubbing Skin no rashes, warm and dry Neurologic moves all extremities and awake; no focal motor deficits Psychiatric A+Ox3, euthymic affect Lymphatic no lymphedema Updated Medication List Medication Instructions Recorded Confirmed Type diclofenac sodium 75 mg 75 mg PO BID #180 tabs 08/02/23 10/09/23 Rx tablet,delayed release gabapentin 300 mg capsule 300 mg PO BID #180 caps 08/02/23 10/09/23 Rx losartan 25 mg tablet 25 mg PO BID #180 tabs 08/02/23 10/09/23 Rx trazodone 150 mg tablet 150 mg PO HS #90 tabs 08/02/23 10/09/23 Rx ropinirole 1 mg tablet 1 mg PO QDD 10/09/23 10/09/23 History tamsulosin 0.4 mg capsule 0.4 mg PO QDD 10/09/23 10/09/23 History Hospital Stay Data Consultations 10/09/23 22:15 ED Decision to Admit Stat 10/10/23 09:13 Consult General Surgery Routine Diagnostic Imagining Performed 10/09/23 19:53 CT Abd and Pelvis [CT abd pelvis IV con only] Stat Pending Results Patient Have Any Pending Studies at Discharge: No Discharge Instructions Given to Patient (Per Discharging Provider) You were admitted with a partial bowel blockage likely from a recent viral gastroenteritis causing inflammation in the gut. This is much improved now. Total Time Total Time Spent Total Time Spent (In Minutes): 35 min Total Time Includes: Examination of the Patient, Discharge Planning and Medication Reconciliation Coding Level of Care Code 18851 INP/OBS DISCH >30 MIN Diagnoses Ileus due to infection K56.7; B99.9 Abdominal pain R10.9 Benign prostatic hyperplasia N40.0 Restless leg syndrome G25.81 Hypertension I10 Insomnia G47.00
== END 2023-10-11 15:05 | disposition home or self-care (01) ==
LOC: ED 19:28 → 3N 22:14 → SUATTDRO 22:14 → INTOOBSV 22:14 → 3N 22:39